=== PATIENT | male | born 2005 | race Caucasian/White ===

== ENCOUNTER 2025-02-16 17:54 | Emergency (ER) | payer OTHER, SELFPAY ==
--- OUTSIDE RECORDS SUMMARY | 2016-12-06 05:00 | XMS_ITS | Continuity of Care Document ---
Author Organization [facility] Address [address] [place] [address] Phone Care Team Providers Care Sales Agent Business Services Name Role Phone Tina Rey DO Unavailable Unavailable Allergies, Adverse Reactions, Alerts Substance Reaction Status Criticality No Known Allergies Active No Inform ation Procedures Procedure Date PURE TONE HEARING TEST, AIR IMMUNIZATION ADMIN TDAP VACCINE >7 IM PREV VISIT, NEW, AGE 12-17 Advance Directives Directive Yes / No Effective Date File Name No Information Encounters Encounter Description Practice Location Reason(s) For Visit Diagnoses Date Provider Providers Copied on Encounter PREV VISIT, NEW, AGE 12-17 [facility], [facility], [address], [place], [id number], [place] tel:[phone] [facility] for routine child health exam w/o abnormal findingsEncounter for immunization [address] [place], [address], [place]. tel: [phone] Family History Family Member Type Diagnosis Age At Onset Father Problem (finding) Diabetes mellitus Immunizations Vaccine Date Status Comments tetanus toxoid, reduced diphtheria toxoid, and acellular pertussis vaccine, adsorbed administered Source: New Immuniza tion Record Payers Payer name Insurance type Covered alliance party ID Authoriza tion(s) [facility] [place] [id number] [facility] [place] [id number] Social History Type Description Quantity Date Captured Comments Alcohol Use Details Unknown Caffeine Use Details Unknown Tobacco Use Status No Information Smoking Status Never smoker Non-Smoking Tobacco Use Details : No Details Available : No Details Available Sex Male Vital Signs Date / Time: Height Weight BMI Pulse Rate Blood Pressure Temperature Respiratory Rate Body Surface Area Head Circumference Head Circ. Percentile Wt./Vlad. Percentile BMI percentile Pulse Ox Inhaled Ox 9:18 AM 61.00 in 67.948 kg (149.80 lbs) 28.3 0 kg/m eter (2) 100 /min 116/74 mm[Hg] 98.10 F 18 /min 98 100 % Chief Complaint And Reason For Visit No Information Reason For Referral Reason For Referral No Information History Of Present Illness Encounter Date Complaint History Of Prese nt Illness No Information Functional Status Date Functional Assessmen t Pain Score 0/10 Instructions Date Instruction Additional Infor mation No Information Assessments Type Assessment Date No Information Patient Care Teams Name Effective Dates (start - stop) Status Members No Information
--- NOTE | ~2025-02-16 | CT_ITS ---
CLINICAL HISTORY: Flank pain kidney stones CT abdomen and pelvis without contrast Comparison: None provided Findings: The lung bases are clear. There is mild hydronephrosis of the right kidney. There is infiltration of fat adjacent to the right kidney and right ureter. There is no current evidence of renal or ureteral stone. Remaining abdominal organs are unremarkable. There are no calcified gallstones. No bowel obstruction, pneumoperitoneum, or pneumatosis. There is a 2 mm calculus within the bladder lumen. Unremarkable prostate gland. Small amount of pelvic free fluid. Normal appendix. The bones are intact. IMPRESSION: 1. Mild hydronephrosis of the right kidney with infiltration of adjacent fat likely secondary to recently passed stone. Pyelonephritis not excluded. 2. There is a 2 mm calculus within the bladder lumen. 3. There is a small amount of pelvic free fluid. This document has been electronically signed by: Tabitha Mesa MD on 02/16/2025 19:30:47
[2025-02-16 18:00] VITALS: BP 142/87; PULSE 79; RESP 16; TEMP 37.2; O2SAT 98; BMI 38.3
--- NOTE | 2025-02-16 18:07 | ED.GENADULT ---
HPI - General Adult General Chief complaint: Abdominal Pain Stated complaint: ?kidney stones Time Seen by Provider: 02/16/25 18:12 Source: patient Mode of arrival: ambulatory Limitations: no limitations History of Present Illness ED Provider: DR. Alejo HPI narrative: 19-year-old male came in for evaluation of right flank pain x4 days, patient was seen at [facility] 4 days ago when the pain started and was diagnosed with 1 mm right kidney stone and DERIAN. Patient returned today for persistent of the symptoms and right flank pain. No fever, no chills, currently no nausea, no vomiting. +Dark urine. Related Data Previous Rx's ?Medication ?Instructions ?Recorded cefuroxime axetil 500 mg tablet 500 mg PO BID #20 tabs 02/16/25 oxycodone 5 mg tablet 5 mg PO BID PRN pain #4 tabs 02/16/25 Allergies Allergy/AdvReac Type Severity Reaction Status Date / Time No Known Allergies Allergy Verified 02/16/25 18:02 Review of Systems Review of Systems: All other systems are reviewed and are negative Constitutional: Reports as per HPI and Reports no additional constitutional complaints Eyes: Reports as per HPI and Reports no additional eye complaints Reports system reviewed and no additional complaints, except as documented Cardiovascular: Reports as per HPI and Reports no additional cardiovascular complaints Respiratory: Reports as per HPI and Reports no additional respiratory complaints Gastrointestinal: Reports as per HPI and Reports no additional gastrointestinal complaints Genitourinary: Reports no additional female genitourinary complaints Musculoskeletal: Reports no additional musculoskeletal complaints Skin/Breast: Reports system reviewed and no additional complaints, except as docu Psychiatric: Reports no additional psychiatric complaints Endocrine: Reports no additional endocrine complaints Hematologic/Lymphatic: Reports no additional hematologic/lymphatic complaints Allergic/Immunologic: Reports no additional allergic/immunologic complaints Reports system reviewed and no additional complaints, except as documented and Reports Abnormal speech present [facility] Social History Social History Alcohol intake: current Alcohol intake frequency: holidays/special occasions only Smoked in Last 30 Days: No Use of substances other than those prescribed or required for medical reasons: Yes Substance Use Type: Marijuana Advance Directives: No Advance Directives Information Provided: Yes Physical Exam ED Vital Signs: Vital Signs - 24 hr 02/16/25 18:00 02/16/25 19:22 02/16/25 20:00 Temperature 99.0 F 97.5 F 98.8 F Pulse Rate 79 70 68 Respiratory Rate 16 18 18 Blood Pressure 142/87 H 136/76 128/71 Pulse Oximetry 98 98 98 Oxygen Delivery Method Room Air Room Air Room Air 02/16/25 20:47 Temperature 98.8 F Pulse Rate 68 Respiratory Rate 18 Blood Pressure 128/71 Pulse Oximetry 98 Oxygen Delivery Method Room Air BMI result Body Mass Index 38.3 Vital signs have been reviewed and appear to be correct. Blood pressure elevated. Heart rate normal. Respiratory rate normal. Temperature normal. Oxygen saturation normal. Appearance: Alert. Oriented X3. No acute distress. Head: Normal external exam. Normocephalic. Atraumatic. No Sahu signs noted. No raccoon eyes noted Eyes: PERRLA. EOMI. Conjunctiva and sclera normal. Eyelids normal. ENT: TM's Normal. Pharynx normal. Uvula midline. Moist mucous membranes. No trismus noted. No drooling noted. No muffled voice noted. Neck: Normal inspection. Neck supple. FROM. No adenopathy. Thyroid Normal. No meningeal signs. No neck mass noted. CVS: Normal heart rate and rhythm. Heart sound normal. No murmurs noted. Pulses normal throughout. Respiratory: No respiratory distress. Painless inspiration. Breath sounds normal. No wheezes/rales/rhonchi noted. Chest nontender. No accessory muscle usage noted or decreased air movement noted. Abdomen: Soft and nontender. Bowel sounds normal in all 4 quadrants. No distention noted. No organomegaly noted. No visible injury noted. Back: R CVA tenderness. Full range of motion noted. Skin: Skin warm and dry. Normal skin color. Normal skin turgor. No rashes/lesions/lacerations noted. Extremities: No lower extremity edema. Extremities exhibit normal range of motion. Extremities nontender. Neuro: Oriented X 3. Cranial nerve exam: II-XII are grossly intact No motor deficit. No sensory deficit. Reflexes normal. Course Course Course Narrative: RME: 19 yold male presents to the ED for worsening right flank pain. patient recently diagnosed with kidney stones at [place] with DERIAN, but refused admission. labs, imaging ordered Reevaluation(s) Reevaluation #1: right flank pain, recently passed right kidney stone, now with pyelonephritis no sepsis. Patient received 1 dose of ceftriaxone then go home on Ceftin /Flomax and encouraged to drink. Time: 20:50 Medications Administered Discontinued Medications Generic Name Dose Route Start Last Admin Trade Name Jimmy PRN Reason Stop Dose Admin Ceftriaxone Sodium 1 gm 02/16/25 19:54 02/16/25 20:20 Ceftriaxone Sodium 1 Gm Vial IVPUSH 02/16/25 19:55 1 gm ONCE ONE Administration Sodium Chloride 1,000 mls @ 999 mls/hr 02/16/25 18:30 02/16/25 20:10 Ns IV 02/16/25 19:30 Infused .Q1H1M DEBBIE Infusion Ketorolac Tromethamine 15 mg 02/16/25 18:21 02/16/25 18:34 Ketorolac Tromethamine 15 Mg/Ml Vial IVPUSH 02/16/25 18:22 15 mg ONCE ONE Administration Morphine Sulfate 1 mg 02/16/25 18:21 02/16/25 18:32 Morphine Sulfate 2 Mg/Ml Cartridge IVPUSH 02/16/25 18:22 1 mg ONCE ONE Administration Protocol Medical Decision Making Differential Diagnosis Differential Diagnoses: The differential diagnosis associated with the presentation includes ( pyelonephritis, kidney stone, pancreatitis, acute appendicitis, acute colitis, acute diverticulitis, electrolyte derangement, severe anemia.) Admission/Observation Consideration of admission/observation: Escalation of care including admission/observation considered Lab Data MDM Lab Attestation statement: I reviewed the patient's lab results. 02/16/25 18:24 02/16/25 18:24 Labs: Lab Results 02/16/25 02/16/25 02/16/25 Range/Units 18:14 18:24 19:12 WBC 10.5 (4.8-10.8) X10*3/uL RBC 4.49 L (4.60-5.80) X10*6/uL Hgb 13.3 L (14.0-18.0) g/dl Hct 37.7 L (42.0-52.0) % MCV 84.0 (80.0-98.0) fL MCH 29.6 (27.0-33.0) pg MCHC 35.3 (31.0-36.0) g/dl RDW 11.7 (11.0-16.0) % Plt Count 297 (160-400) X10*3/uL MPV 9.4 (9.4-12.4) fL Immature Gran % (Auto) 0.5 H (0.0-0.4) % Neut % (Auto) 71.6 (45-73) % Lymph % (Auto) 16.0 L (20-40) % Roosevelt % (Auto) 10.7 (2-11) % Eos % (Auto) 0.8 (0-4) % Baso % (Auto) 0.4 (0-2) % Lymph # (Auto) 1.7 (1.2-4.9) X10*3/uL Roosevelt # (Auto) 1.1 (0.1-1.2) X10*3/uL Eos # (Auto) 0.1 (0.0-0.4) X10*3/uL Baso # (Auto) 0.0 (0.0-0.2) X10*3/uL Abs Immat Gran (auto) 0.05 H (0.00-0.03) X10*3/uL Absolute Neuts (auto) 7.5 (2.0-8.3) x10*3/uL Absolute Nucleated RBC 0.000 (0.0-0.012) X10*3/uL Nucleated RBC % (auto) 0.0 (0.0-0.2) /100WBC Sodium 139 (135-145) mmol/L Potassium 3.7 (3.3-5.1) mmol/L Chloride 105 (96-108) mmol/L Carbon Dioxide 26 (22-29) mmol/L Anion Gap 12 (12-20) BUN 13 (9-16) mg/dL Creatinine 1.46 H (0.5-1.4) mg/dL Estim Creat Clear Calc 98.9 Estimated GFR > 60 Random Glucose 92 (60-115) mg/dL Lactic Acid (0.5-2.0) mmol/L Calcium 8.8 (8.4-10.2) mg/dL Total Bilirubin 0.6 (0.0-1.0) mg/dL AST 28 (5-37) U/L ALT 27 (0-40) U/L Alkaline Phosphatase 59 (39-117) U/L Total Protein 7.0 (6.5-8.0) g/dL Albumin 4.4 (3.5-5.0) g/dL Lipase 16 (8-78) U/L Urine Color Yellow BROWN Urine Appearance Clear Turbid Urine pH 6.5 6.5 (5.0-9.0) Ur Specific [place] >= 1.030 H 1.025 (1.005-1.025) Urine Protein 100 (2+) H See Note (Neg-Trace) mg/dL Urine Glucose (UA) Negative Negative (Negative) mg/dL Urine Ketones 40 See Note (Negative) mg/dL Urine Blood Moderate (2+) H Large (3+) H (Negative) Urine Nitrite Negative See Note (Negative) Ur Leukocyte Esterase Negative Small (1+) H (Negative) Urine RBC 11-20 H >20 H (0-2) /HPF Urine WBC 0-5 >50 H (0-5) /HPF Ur Squamous Epith Cells 0-2 6-10 (0-2) /HPF Urine Bacteria None Seen None Seen (None Seen) Hyaline Casts 0-2 >20 (0-2) /LPF Urine Yeast Present 02/16/25 Range/Units 20:04 WBC (4.8-10.8) X10*3/uL RBC (4.60-5.80) X10*6/uL Hgb (14.0-18.0) g/dl Hct (42.0-52.0) % MCV (80.0-98.0) fL MCH (27.0-33.0) pg MCHC (31.0-36.0) g/dl RDW (11.0-16.0) % Plt Count (160-400) X10*3/uL MPV (9.4-12.4) fL Immature Gran % (Auto) (0.0-0.4) % Neut % (Auto) (45-73) % Lymph % (Auto) (20-40) % Roosevelt % (Auto) (2-11) % Eos % (Auto) (0-4) % Baso % (Auto) (0-2) % Lymph # (Auto) (1.2-4.9) X10*3/uL Roosevelt # (Auto) (0.1-1.2) X10*3/uL Eos # (Auto) (0.0-0.4) X10*3/uL Baso # (Auto) (0.0-0.2) X10*3/uL Abs Immat Gran (auto) (0.00-0.03) X10*3/uL Absolute Neuts (auto) (2.0-8.3) x10*3/uL Absolute Nucleated RBC (0.0-0.012) X10*3/uL Nucleated RBC % (auto) (0.0-0.2) /100WBC Sodium (135-145) mmol/L Potassium (3.3-5.1) mmol/L Chloride (96-108) mmol/L Carbon Dioxide (22-29) mmol/L Anion Gap (12-20) BUN (9-16) mg/dL Creatinine (0.5-1.4) mg/dL Estim Creat Clear Calc Estimated GFR Random Glucose (60-115) mg/dL Lactic Acid 0.5 (0.5-2.0) mmol/L Calcium (8.4-10.2) mg/dL Total Bilirubin (0.0-1.0) mg/dL AST (5-37) U/L ALT (0-40) U/L Alkaline Phosphatase (39-117) U/L Total Protein (6.5-8.0) g/dL Albumin (3.5-5.0) g/dL Lipase (8-78) U/L Urine Color Urine Appearance Urine pH (5.0-9.0) Ur Specific [place] (1.005-1.025) Urine Protein (Neg-Trace) mg/dL Urine Glucose (UA) (Negative) mg/dL Urine Ketones (Negative) mg/dL Urine Blood (Negative) Urine Nitrite (Negative) Ur Leukocyte Esterase (Negative) Urine RBC (0-2) /HPF Urine WBC (0-5) /HPF Ur Squamous Epith Cells (0-2) /HPF Urine Bacteria (None Seen) Hyaline Casts (0-2) /LPF Urine Yeast Independent Interpretation I performed an independent interpretation of an: CT Scan ( Abdomen and pelvis:1. Mild hydronephrosis of the right kidney with infiltration of adjacent fat likely secondary to recently passed stone. Pyelonephritis not excluded. 2. There is a 2 mm calculus within the bladder lumen. 3. There is a small amount of pelvic free fluid.) Radiology Impression Discussion of test interpretation with radiology: I have reviewed the radiologist's reading. Discharge Plan Discharge Clinical Impression: Calculus of kidney, Acute pyelonephritis Patient Disposition: Home, Self-Care Instructions: Kidney Infection (ED), How to Strain Your Urine (ED) Additional Instructions: drink plenty of fluids. Seek immediate medical attention for fever and chills or symptoms is not improving. Prescriptions: New cefuroxime axetil 500 mg tablet 500 mg PO BID Qty: 20 0RF oxycodone 5 mg tablet 5 mg PO BID PRN (Reason: pain) Qty: 4 0RF Rx Instructions: Partial Fill upon patient request. Stand Alone Forms: Work/School Release Interventions: ED Discharge Assessment Last Done: 02/16/25 20:47 Discharge Date/Time: 02/16/25 20:50 Print Language: Russian
[2025-02-16 18:30] LABS: MANUAL DIFF FLAG NO
[2025-02-16 18:34] LABS: Hematocrit 37.7 % (42.0-52.0); Hemoglobin 13.3 g/dl (14.0-18.0); Imm Gran Abs Auto 0.05 X10*3/uL (0.00-0.03); Imm Gran Pct Auto 0.5 % (0.0-0.4); Lymphocytes Absolute Auto 1.7 X10*3/uL (1.2-4.9); Mean Corpuscular HGB Conc 35.3 g/dl (31.0-36.0); Mean Corpuscular Hemoglobin 29.6 pg (27.0-33.0); Mean Corpuscular Volume 84.0 fL (80.0-98.0); NRBC Abs Auto 0.000 X10*3/uL (0.0-0.012); NRBC Pct Auto 0.0 /100WBC (0.0-0.2); Platelet Count 297 X10*3/uL (160-400); Red Blood Count 4.49 X10*6/uL (4.60-5.80); White Blood Count 10.5 X10*3/uL (4.8-10.8)
[2025-02-16 18:34] LABS: Appearance Urine Clear; Glucose Urine UA Negative (Negative); PH 6.5 (5.0-9.0); Specific Gravity - Urine >= 1.030 (1.005-1.025); UMIC TRIGGER UACC YES
[2025-02-16 18:50] LABS: Lipase 16 U/L (8-78)
[2025-02-16 18:54] LABS: Alanine Aminotransferase 27 U/L (0-40); Albumin Level 4.4 g/dL (3.5-5.0); Alkaline Phosphatase 59 U/L (39-117); Anion Gap 12 (12-20); Aspartate Amino Transferase 28 U/L (5-37); Blood Urea Nitrogen 13 mg/dL (9-16); Calcium 8.8 mg/dL (8.4-10.2); Carbon Dioxide 26 mmol/L (22-29); Chloride 105 mmol/L (96-108); Creatinine Clr Calc Pharmacy 98.9; Estimated Glomerular Filt Rate > 60; Potassium 3.7 mmol/L (3.3-5.1); Sodium 139 mmol/L (135-145); Total Protein 7.0 g/dL (6.5-8.0)
[2025-02-16 19:19] LABS: Appearance Urine Turbid; Glucose Urine UA Negative (Negative); PH 6.5 (5.0-9.0); Specific Gravity - Urine 1.025 (1.005-1.025); UMIC TRIGGER UACC YES
[2025-02-16 19:22] VITALS: BP 136/76; PULSE 70; RESP 18; TEMP 36.4; O2SAT 98
--- OUTSIDE RECORDS SUMMARY | 2025-02-16 19:32 | XMS_ITS | Clinical Summary ---
Author Organization [facility] Address [address] [place] [id number] Phone Care Team Providers Care Cross Cut Sawyer Name Role Phone Radha Lopez TANK HOUSE OPERATOR Primary Care Provider Allergies No known active allergies Medications No known medications Social History Tobacco Use Types Packs/Day Years Used Date Smoking Tobacco: Never Assessed Education Answer Date Recorded Are you interested in more education? Not on jen e 09/27/2022 Are you concerned about learning? Not on file 09/27/2022 No 09/27/2022 No 09/27/2022 Digital Access Answer Date Recorded No 10/26/2022 No 10/26/2022 Reliable internet access at home? Not on file 10/26/2022 Device with a working camera? Not on file Sex and Gender Information Value Date Recorded Sex Assigned at Male 04/03/2019 5:09 PM EDT Legal Sex Male 4:51 PM EDT Gender Identity Male 04/03/2019 5:09 PM EDT Sexual Orientation Straight 04/03/2019 5: 09 PM EDT Last Filed Vital Signs Vital Sign Reading Time Taken Comments Blood Pressure 119/78 08/06/2019 5:17 PM EST Pulse 71 08/06/2019 5:17 PM EST Temperature 35.9 C (96.6 F) 08/06/2019 8:53 PM EST Respiratory Rate 20 08/06/2019 5:17 PM EST Oxygen Saturation 99% 08/06/2019 5:17 PM EST Inhaled Oxygen Concentration - - Weight 102.1 kg (225 lb) 08/06/2019 5:17 PM EST Height 172.7 cm (5' 8 ) 08/06/2019 5:17 PM EST Body Mass Index 34.21 08/06/2019 5:17 PM EST Plan of Treatment Health Maintenance Due Date Last Done Comments MMR VACCINES (1 of 1 - Standard series) 2005 DEVELOPMENTAL/BEHAVIORAL SCREENING (PHQ, PSC, or SWYC) 08/01/2007 DEPRESSION SCREENING 2016 COMBINED DTaP,Tdap,Td (2 - T d or Tdap) 01/03/2017 12/06/2016 SMOKING Hx and SMOKELESS TOBACCO SCREENING 2017 VARICELLA VACCINES (1 of 2 - 13+ 2-dose series) 2017 HPV VACCINES (1 - Male 3-dos e series) 08/01/2019 MENINGOCOCCAL VACCINES (B) ( 1 of 2 - Standard) 2020 ADOLESCENT UNIVERSAL LIPID SCREENING 2021 HEPATITIS C SCREENING 2022 HIV ONE-TIME SCREENING (18-6 5 YEARS) 2022 INFLUENZA VACCINE (#1) 2024 0, 04/23/2019 COVID-19 VACCINE (3 - 2024-2 6 season) 2025 11/01/2020, 10/07/2020 HEPATITIS A VACCINES Aged Out No long er eligible based on patient's age to complete this topic HIB VACCINES Aged Out No longer eligi ble based on patient's age to complete this topic MENINGOCOCCAL VACCINES (ACWY) Aged Out No longer eligible based on patient's age to complete this topic PNEUMOCOCCAL VACCINES (0-49 years) Aged Out No longer eligible b ased on patient's age to complete this topic Medical Devices Not on file Care Teams Cross Cut Sawyer Relationship Specialty Start Date End Date Radha Lopez NP [address] [place] [id number] [email or web address] PCP - General Family Medicine 04/03/19 Additional Source Comments The information contained in this document represents components of the legal health record. It is not the complete legal health record.[facility]
[2025-02-16 19:52] LABS: UACC Culture Trigger YES
[2025-02-16 20:00] VITALS: BP 128/71; PULSE 68; RESP 18; TEMP 37.1; O2SAT 98
[2025-02-16 20:47] VITALS: BP 128/71; PULSE 68; RESP 18; TEMP 37.1; O2SAT 98
== END 2025-02-16 20:50 | disposition home or self-care (01) ==
PROVIDERS: Physician Assistant; Emergency Provider Emergency Medicine
DX: N20.0 Calculus of kidney (principal); N10 Acute pyelonephritis; Z87.442 Personal history of urinary calculi; R10.9 Unspecified abdominal pain
CPT/HCPCS: 36415; 74176; 80053; 81001; 83605; 83690; 85025; 87040; 87086; 96361; 96374; 96375; 99284; J0696; J1885; J2270

== ENCOUNTER → 2025-02-16 18:04 | Outpatient (BNV) | payer OTHER, SELFPAY | PROVIDERS: Emergency Provider Emergency Medicine; Visit Provider Radiology Diagnostic Radiology | DX: N20.0 Calculus of kidney (principal) | CPT/HCPCS: 74176 ==